=== PATIENT | female | born 1975 | race Caucasian/White ===

== ENCOUNTER 2019-10-16 16:17 | Outpatient (REF) | payer MEDICARE, SELFPAY ==
[2019-10-16 20:49] LABS: HCT 41.6 % (36.0-46.0); HGB 13.9 g/dL (12.0-15.5); Mean Corp. HGB Concentration 33.4 g/dL (32.0-36.0); Mean Corpuscular Volume 92.9 fL (80-95); Mean Platelet Volume 10.3 fL (8.0-11.0); Platelet Count 312 x1000/uL (130-400); RBC 4.48 m/cumm (4.00-5.20); RBC Distribution Width 14.1 % (11.7-14.6); White Blood Cell Count 9.18 k/cumm (4.4-10.8)
[2019-10-16 21:20] LABS: C-Reactive Protein 0.28 mg/dL (0.0-0.3); FREE T4 1.18 ng/dL (0.76-1.46); TSH 2.39 uIU/mL (0.36-3.74)
[2019-10-16 21:30] LABS: ESR 24 mm/hr (0-20)
[2019-10-18 09:50] LABS: FSH 95.6 mIU/mL (See Note)
[2019-10-18 10:11] LABS: Prolactin 8.3 ng/mL (See Table)
[2019-10-18 11:04] LABS: Rheumatoid Factor <7.5 IU/mL (<12.5)
== END 2019-10-16 16:37 ==
LOC: NCHCN 16:17
PROVIDERS: PCP Internal Medicine; Visit Provider Internal Medicine
DX: D35.2 Benign neoplasm of pituitary gland (principal); N95.1 Menopausal and female climacteric states; E66.9 Obesity, unspecified
CPT/HCPCS: 85027; 85652; 83001; 83002; 84146; 84439; 84443; 86140; 86431

== ENCOUNTER 2020-07-23 12:02 | Outpatient (REF) | payer MEDICARE, SELFPAY ==
[2020-07-28 14:56] LABS: Patient Race White; SARS-CoV-2 RNA Undetected (Undetected); SARS-CoV-2 Specimen Source Nasal
== END 2020-07-23 12:22 ==
LOC: NCHCN 12:02
PROVIDERS: PCP Internal Medicine; Visit Provider Internal Medicine
DX: Z20.828 Contact with and (suspected) exposure to other viral communicable diseases (principal)
CPT/HCPCS: U0003

== ENCOUNTER 2020-10-07 16:30 | Outpatient (REF) | payer MEDICARE, SELFPAY ==
[2020-10-09 10:23] LABS: Varicella IgG Antibody Negative (See Note)
== END 2020-10-07 16:50 ==
LOC: NCHCN 16:30
PROVIDERS: PCP Internal Medicine; Visit Provider Family Medicine
DX: R21 Rash and other nonspecific skin eruption (principal)
CPT/HCPCS: 86787

== ENCOUNTER 2020-11-30 17:56 | Outpatient (REF) | payer MEDICARE, SELFPAY ==
[2020-11-30 19:17] LABS: HCT 42.8 % (36.0-46.0); HGB 14.5 g/dL (11.2-15.7); MCH 31.4 pg (27.0-33.0); MCHC 33.9 % (32.0-36.0); MCV 92.6 fL (80-95); MPV 10.2 fL (8.0-11.0); Platelet Count 303 10^3/uL (130-400); RBC 4.62 10^6/uL (3.93-5.22); RDW 13.5 % (11.7-14.6); RDW-SD 46.2 fL
[2020-11-30 19:28] LABS: ALT 21 U/L (14-59); AST 15 U/L (15-37); Albumin 3.8 g/dL (3.4-5.0); Alkaline Phosphatase 100 U/L (46-116); Anion Gap 10.5 mmol/L (3-11); BUN 7 mg/dL (7-18); Bilirubin, Total 0.3 mg/dL (0.2-1.0); C-Reactive Protein 0.31 mg/dL (0.0-0.3); CO2 26.5 mmol/L (21.0-32.0); CREATININE 0.8 mg/dL (0.55-1.02); Calcium 9.2 mg/dL (8.5-10.1); Chloride 103 mmol/L (98-107); Glucose 86 mg/dL (74-106); Potassium 4.4 mmol/L (3.5-5.1); Sodium 140 mmol/L (136-145); TSH 2.86 uIU/mL (0.36-3.74); Total Protein 7.1 g/dL (6.4-8.2)
[2020-12-01 12:17] LABS: ESR 28 mm/hr (<or=20)
[2020-12-01 16:52] LABS: Rheumatoid Factor <8.6 IU/mL (<12.0)
[2020-12-02 09:22] LABS: Cyclic Citrullinated Peptide <2.5 U/mL (<5.0)
== END 2020-11-30 17:57 | disposition home or self-care (01) ==
LOC: NCHCN 17:56
PROVIDERS: PCP Internal Medicine; Visit Provider Internal Medicine
DX: M19.041 Primary osteoarthritis, right hand (principal); M19.042 Primary osteoarthritis, left hand; R42 Dizziness and giddiness; E66.9 Obesity, unspecified
CPT/HCPCS: 80053; 85027; 85652; 86200; 84146; 84443; 86140; 86431

== ENCOUNTER 2021-04-13 11:44 | Outpatient (REF) | payer MEDICARE, SELFPAY ==
[2021-04-15 11:04] LABS: COVID-19 RT-PCR UVMMC Result Negative (Negative)
== END 2021-04-13 11:45 | disposition home or self-care (01) ==
LOC: NCHCN 11:44
PROVIDERS: PCP Internal Medicine; Visit Provider Internal Medicine
DX: Z20.822 Contact with and (suspected) exposure to COVID-19 (principal)
CPT/HCPCS: U0003

== ENCOUNTER 2021-09-09 17:56 | Outpatient (REF) | payer MEDICARE, SELFPAY ==
[2021-09-11 02:36] LABS: COVID-19 RT-PCR UVMMC Result Negative (Negative)
== END 2021-09-09 17:57 | disposition home or self-care (01) ==
LOC: NCHCN 17:56
PROVIDERS: PCP Internal Medicine; Visit Provider Internal Medicine
DX: Z20.822 Contact with and (suspected) exposure to COVID-19 (principal); R05.8 Other specified cough
CPT/HCPCS: U0003; U0005

== ENCOUNTER 2021-12-07 16:35 | Outpatient (REF) | payer MEDICARE, SELFPAY ==
[2021-12-07 21:01] LABS: Bilirubin Negative (Negative); Blood Negative (Negative); Clarity Clear (Clear); Glucose Negative (Negative); Ketones Negative (Negative); Leukocyte Esterase Negative (Negative); Nitrite Negative (Negative); Specific Gravity 1.015 (1.005-1.025); Urobilinogen 0.2 EU/dL (Up TO 0.2); pH 5.5 (5-8)
== END 2021-12-07 16:36 | disposition home or self-care (01) ==
LOC: NCHCN 16:35
PROVIDERS: PCP Internal Medicine; Visit Provider Nurse Practitioner Family
DX: R31.9 Hematuria, unspecified (principal)
CPT/HCPCS: 81003

== ENCOUNTER 2024-02-27 16:16 | Outpatient (REF) | payer MEDICARE, SELFPAY ==
[2024-02-27 19:56] LABS: TSH (W/Ref FT4) 1.91 uIU/mL (0.36-3.74)
== END 2024-02-27 16:17 | disposition home or self-care (01) ==
LOC: NCHCN 16:16
PROVIDERS: PCP Internal Medicine; Visit Provider Nurse Practitioner Family
DX: R55 Syncope and collapse (principal); D35.2 Benign neoplasm of pituitary gland
CPT/HCPCS: 84443

== ENCOUNTER 2024-10-14 18:23 | Outpatient (REF) | payer MEDICARE, SELFPAY | END 2024-10-14 18:24 | disposition home or self-care (01) | LOC: NCHCN 18:23 | PROVIDERS: PCP Internal Medicine; Visit Provider Internal Medicine | DX: N10 Acute pyelonephritis (principal) | CPT/HCPCS: 87086 ==